=== PATIENT | male | born 1980 | race Two or more races ===

== ENCOUNTER 2018-05-06 00:47 | Observation (INO) | payer OTHER ==
[2018-05-06] MEDS ORDERED: ONDANSETRON 4 MG/2 ML VIAL IVP ONE (01:07)
[2018-05-06] MEDS ORDERED: fentaNYL 100 MCG/2 ML INJ IVP ONE (01:07)
[2018-05-06] MEDS ORDERED: NS 1,000 ML IV ONE ×2 (01:07→03:59)
--- NOTE | 2018-05-06 01:08 | EDPHY ---
H & P Stated Complaint: n/v, Abdo pain Time Seen by Provider: 05/06/18 00:53 HPI/ROS: Chief Complaint: Abdominal pain, nausea, vomiting HPI: 38-year-old male began having abdominal pain in his central abdomen about 4 hr ago. About an hour later he developed nausea and vomiting. No diarrhea or constipation. Has had similar symptoms several years ago was diagnosed with enteritis. No fevers or chills. No blood or coffee-grounds in his vomit. No dark tarry stools. Pain is about a 3/10. It moves around but is sting on the right-hand side. No urinary urgency or frequency. There are no aggravating or alleviating factors. ROS: 10 systems were reviewed and were negative except those elements noted in the HPI. PMH: Denies Social History: No smoking, no alcohol, no recreational drug use Family History: non-contributory Physical Exam: Gen: Awake, Alert, No Distress HEENT: Nose: no rhinorrhea Eyes: PERRLA, EOMI Mouth: Moist mucosa Neck: Supple, no JVD Chest: nontender, lungs clear to auscultation Heart: S1, S2 normal, no murmur Abd: Soft, mild right upper and right lower quadrant tenderness, no guarding Back: no CVA tenderness, no midline tenderness Ext: no edema, non-tender Skin: no rash Neuro: CN II-XII intact, Sensation grossly intact, Strength 5/5 in bilateral upper and lower extremities - Personal History Current Tetanus/Diphtheria Vaccine: Yes Current Tetanus Diphtheria and Acellular Pertussis (TDAP): Yes - Medical/Surgical History Hx Asthma: No Hx Chronic Respiratory Disease: No Hx Diabetes: No Hx Cardiac Disease: No Hx Renal Disease: No Hx Cirrhosis: No Hx Alcoholism: No Hx HIV/AIDS: No Hx Splenectomy or Spleen Trauma: No Other PMH: denies - Social History Smoking Status: Never smoked Constitutional: Initial Vital Signs Temperature (C) 36.7 C 05/06/18 00:49 Heart Rate 95 05/06/18 00:49 Respiratory Rate 16 05/06/18 00:49 Blood Pressure 132/91 H 05/06/18 00:49 O2 Sat (%) 97 05/06/18 00:49 O2 Delivery Mode Room Air Allergies/Adverse Reactions: No Known Allergies Allergy (Unverified 05/06/18 00:49) Home Medications: Medication Instructions Recorded NK [No Known Home Meds] 05/06/18 Medical Decision Making - Diagnostics Imaging Results: CT scan consistent with acute appendicitis per Dr. Hernandez. Imaging: Discussed imaging studies w/ call center coordinator Radiologist ED Course/Re-evaluation: 38-year-old male with acute appendicitis. This is confirmed on CT scan. I have discussed with Dr. Barboza, general surgery. He will plan to take the patient to the operating room. I have ordered ceftriaxone and Flagyl. - Data Points Laboratory Results: Laboratory Results 05/06/18 01:12 05/06/18 01:12 05/06/18 05/06/18 01:12 01:12 WBC 11.05 10^3/uL H 10^3/uL (3.80-9.50) RBC 5.06 10^6/uL 10^6/uL (4.40-6.38) Hgb 16.1 g/dL g/dL (13.7-17.5) Hct 44.6 % % (40.0-51.0) MCV 88.1 fL fL (81.5-99.8) MCH 31.8 pg pg (27.9-34.1) MCHC 36.1 g/dL g/dL (32.4-36.7) RDW 12.4 % % (11.5-15.2) Plt Count 223 10^3/uL 10^3/uL (150-400) MPV 10.3 fL fL (8.7-11.7) Neut % (Auto) 85.1 % H % (39.3-74.2) Lymph % (Auto) 11.0 % L % (15.0-45.0) Kendall % (Auto) 3.0 % L % (4.5-13.0) Eos % (Auto) 0.2 % L % (0.6-7.6) Baso % (Auto) 0.3 % % (0.3-1.7) Nucleat RBC Rel Count 0.0 % % (0.0-0.2) Absolute Neuts (auto) 9.41 10^3/uL H 10^3/uL (1.70-6.50) Absolute Lymphs (auto) 1.22 10^3/uL 10^3/uL (1.00-3.00) Absolute Monos (auto) 0.33 10^3/uL 10^3/uL (0.30-0.80) Absolute Eos (auto) 0.02 10^3/uL L 10^3/uL (0.03-0.40) Absolute Basos (auto) 0.03 10^3/uL 10^3/uL (0.02-0.10) Absolute Nucleated RBC 0.00 10^3/uL 10^3/uL (0-0.01) Immature Gran % 0.4 % % (0.0-1.1) Immature Gran # 0.04 10^3/uL 10^3/uL (0.00-0.10) Sodium 143 mEq/L mEq/L (135-145) Potassium 3.8 mEq/L mEq/L (3.3-5.0) Chloride 105 mEq/L mEq/L (97-110) Carbon Dioxide 26 mEq/l mEq/l (22-31) Anion Gap 12 mEq/L mEq/L (6-14) BUN 17 mg/dL mg/dL (7-23) Creatinine 0.8 mg/dL mg/dL (0.7-1.3) Estimated GFR > 60 Glucose 125 mg/dL H mg/dL (70-100) Calcium 9.6 mg/dL mg/dL (8.5-10.4) Total Bilirubin 1.0 mg/dL mg/dL (0.1-1.4) AST 27 IU/L IU/L (17-59) ALT 32 IU/L IU/L (21-72) Alkaline Phosphatase 81 IU/L IU/L (38-126) Total Protein 8.2 g/dL g/dL (6.3-8.2) Albumin 4.7 g/dL g/dL (3.5-5.0) Lipase 95 IU/L IU/L (23-300) Medications Given: Discontinued Medications Fentanyl (Sublimaze) 50 mcg IVP EDNOW ONE Stop: 05/06/18 01:08 Last Admin: 05/06/18 01:43 Dose: 50 mcg Sodium Chloride (Ns) 1,000 mls @ 0 mls/hr IV ONCE ONE; Wide Open PRN Reason: Protocol Stop: 05/06/18 01:08 Last Admin: 05/06/18 01:11 Dose: 1,000 mls Famotidine/Sodium Chloride (Pepcid 20 Mg (Premix)) 50 mls @ 200 mls/hr IV EDNOW ONE Stop: 05/06/18 02:45 Last Admin: 05/06/18 02:35 Dose: 50 mls Ketorolac Tromethamine (Toradol) 15 mg IVP EDNOW ONE Stop: 05/06/18 01:45 Last Admin: 05/06/18 01:49 Dose: 15 mg Ondansetron HCl (Zofran) 4 mg IVP EDNOW ONE Stop: 05/06/18 01:08 Last Admin: 05/06/18 01:44 Dose: 4 mg Departure - Departure Disposition: [facility] Inpatient Acute Clinical Impression: Acute appendicitis Condition: Fair Referrals: NONE *PRIMARY CARE P,. [Primary Care Provider] - As per Instructions
[2018-05-06 01:23] LABS: PLATELET COUNT 223 10^3/uL (150-400)
[2018-05-06] MEDS ORDERED: KETOROLAC 15 MG/1 ML SDV IVP ONE (01:44)
[2018-05-06] MEDS ORDERED: FAMOTIDINE 20 MG/NACL/50 ML BAG IV ONE (02:28)
[2018-05-06] MEDS ORDERED: FAMOTIDINE 20 MG/NACL 50 ML IV ONE (02:31)
[2018-05-06] MEDS ORDERED: IOPAMIDOL (ISOVUE-300) 100 ML BTL ONE (03:25)
[2018-05-06] MEDS ORDERED: NALOXONE HCL 0.4 MG/ML INJ IVP PRN (05:44)
[2018-05-06] MEDS ORDERED: ALBUTEROL 3 ML DEYVIAL IH PRN (05:44)
[2018-05-06] MEDS ORDERED: fentaNYL 100 MCG/2 ML INJ IVP PRN (05:44)
[2018-05-06] MEDS ORDERED: HYDROmorphONE/DILAUDID 2 MG/ML INJ IVP PRN (05:44)
[2018-05-06] MEDS ORDERED: ONDANSETRON 4 MG/2 ML VIAL IVP PRN ×2 (05:44→07:09)
[2018-05-06] MEDS ORDERED: PROMETHAZINE HCL 25 MG/ML INJ IVP PRN (05:44)
[2018-05-06] MEDS ORDERED: oxyCODONE IR 5 MG TAB PO PRN (05:44)
--- NOTE | 2018-05-06 05:46 | PDANEPAE ---
ANE History of Present Illness Appy ANE Past Medical History - Cardiovascular History Hx Hypertension: No Hx Arrhythmias: No - Pulmonary History Hx COPD: No Hx Asthma/Reactive Airway Disease: No Hx Oxygen in Use at Home: No - Endocrine History Hx Diabetes: No ANE Review of Systems Review of Systems: - Exercise capacity Exercise capacity: >=4 METS ANE Patient History - Allergies Allergies/Adverse Reactions: No Known Allergies Allergy (Unverified 05/06/18 00:49) - Home Medications Home Medications: NK [No Known Home Meds] 05/06/18 [Last Taken Unknown] - Smoking Hx Smoking Status: Never smoked ANE Labs/Vital Signs - Labs Result Diagrams: 05/06/18 01:12 05/06/18 01:12 - Vital Signs Blood Pressure: 134/83 Heart Rate: 96 Respiratory Rate: 18 O2 Sat (%): 98 Height: 169 cm Weight: 70 kg ANE Physical Exam - Airway Neck exam: FROM Mallampati Score: Class 2 Mouth exam: normal dental/mouth exam - Pulmonary Pulmonary: clear to auscultation - Cardiovascular Cardiovascular: regular rate and rhythym - ASA Status ASA Status: I, E ANE Anesthesia Plan Anesthesia Plan: general endotracheal anesthesia
[2018-05-06] MEDS ORDERED: fentaNYL 100 MCG/2 ML INJ ONE ×2 (05:48→07:24)
[2018-05-06] MEDS ORDERED: PROPOFOL 200 MG/20 ML VIAL ONE (05:49)
[2018-05-06] MEDS ORDERED: ROCURONIUM 50 MG/5 ML VIAL ONE (05:50)
[2018-05-06] MEDS ORDERED: LIDOCAINE 2% 2 ML INJ ONE ×2 (05:51)
[2018-05-06] MEDS ORDERED: DEXAMETHASONE 4 MG/ML VIAL ONE (05:51)
[2018-05-06] MEDS ORDERED: ONDANSETRON 4 MG/2 ML VIAL ONE (05:51)
[2018-05-06] MEDS ORDERED: PHENYLEPHRINE HCL 100 MCG/ML SYR ONE (06:03)
[2018-05-06] MEDS ORDERED: HEPARIN 5,000 UNIT/0.5 ML INJ ONE (06:08)
[2018-05-06] MEDS ORDERED: ceFAZolin 1 GM/5 ML SYR ONE (06:08)
[2018-05-06] MEDS ORDERED: fentaNYL 250 MCG/5 ML INJ ONE (06:23)
--- NOTE | 2018-05-06 07:03 | POSTOPPROG ---
Post Op Note Date of Operation: 05/06/18 Surgeon: Bryan Barboza Anesthesia: GET(General Endotracheal) Pre-op Diagnosis: acute appendicitis, right indirect inguinal hernia Post-op Diagnosis: acute appendicitis, right > left indirect inguinal hernias Indication: acute appendicitis Procedure: laparoscopic appendectomy Findings: acute appendicitis, right > left indirect inguinal hernias Inf/Abcess present in the surg proc area at time of surgery?: No EBL: Minimal Total fluids administered: 2550 since ER admit Complications: none Specimen(s): appendix
[2018-05-06] MEDS ORDERED: SUGAMMADEX SODIUM 200 MG/2 ML VIAL IVP ONE (07:05)
[2018-05-06] MEDS ORDERED: HYDROmorphONE/DILAUDID 1 MG/ML INJ IVP PRN (07:09)
[2018-05-06] MEDS ORDERED: ACETAMINOPHEN 325 MG TAB PO SCH (07:15)
[2018-05-06] MEDS ORDERED: LR 1,000 ML IV SCH (07:30)
--- NOTE | 2018-05-06 07:31 | GHP ---
DATE OF ADMISSION: 05/06/2018 ADMITTING DIAGNOSIS: Massively distended appendix/mucocele, large reducible right inguinal hernia HISTORY: The patient is a 38-year-old Croatian-speaking male. He presented to the emergency department with right abdominal pain. CT shows an appendix which is dilated to 27 mm with possible right ureteral obstruction. I was asked to come see the patient. Apparently he had a similar episode both 4 and 3 years ago in [place]. A CT was not performed at that time, just plain x- rays. He was told he had an enteritis which resolved without issue. On Monday night he had pizza for dinner and woke up Monday morning feeling tired and having mild abdominal pain. He was able to eat breakfast but ate only a small amount for dinner as he was not very hungry. He vomited at 11 p.m. and he decided to come to the ER. The pain had become progressively worse over the course of the day. He moved his bowels in the morning and was slightly better at that time. He had nasal congestion 2 weeks ago. He described allergies. He has not had any diarrhea. He did travel to [place] in March. He has not had any antibiotics in the last 6 months. No abdominal surgery. There is no history of inflammatory bowel disease. SOCIAL HISTORY: He does not smoke. He does not drink. ALLERGIES: He has no known drug allergies. MEDICATIONS: His only medication is ibuprofen. PAST MEDICAL/SURGICAL HISTORY: He had no prior surgery. There is no history of rheumatic fever, tuberculosis, hepatitis, transfusions. REVIEW OF SYSTEMS: He has myopia, dry eyes, and does wear glasses. He has seasonal allergies. He has a left upper molar, which is in need of dental care. 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 He has known small right inguinal hernia. There are no limits on his activities. No history of steroid use. PHYSICAL EXAMINATION: VITAL SIGNS: His temperature is 36.7. His pain is now down from a 9 to a 2-3. His blood pressure is 132/91, at a rate of 95, respirations are 16, room air sats 97%. GENERAL: He is awake, alert, and oriented. He is pleasant and conversant. The interview is carried out using the video asp web developer. He states he feels much better than he did when he arrived at the hospital. NEUROLOGIC: He is awake, alert, and oriented to person, place, and time. No focal lateralizing neurologic findings. NECK: Supple. There are no carotid bruits. LYMPHATIC: There is no cervical, supraclavicular, axillary, or inguinal lymphadenopathy. BACK: Unremarkable. LUNGS: Clear to auscultation. CARDIAC: Shows S1, S2 to be normal, normal split of S2 without murmurs, rubs, or gallops. ABDOMEN: Shows hypoactive bowel sounds. Psoas and obturator signs are negative. He is tender with cough in the right mid abdomen at 3/10. To palpation left upper quadrant is 1, left midabdomen is 1, left lower quadrant is 2, epigastrium is 1, periumbilical area is 2, suprapubic area is 3, right upper quadrant 2, right mid abdomen is 4, right lower quadrant is 5. Right inguinal hernia is easily reducible EXTREMITIES: Unremarkable except for two lipomas on the right forearm. LABS: His white count 11.5 with 85% neutrophils. Hematocrit is 44, platelet count is 233. His glucose was 125. Lipase is 95. Potassium is 3.8. Sodium is 143. The UA was ordered but not done. IMAGING: The CT scan does show the 27 mm in diameter appendix/mucocele. It looks as if there is edema in the retroperitoneum without distinct stranding. There is a dilated right ureteral pelvis. I do not see anything I can clearly call a neoplastic change. I do not appreciate any lymphadenopathy of significance. This is an unusual presentation. I will plan to start laparoscopically but may convert to an open procedure if necessary. /[id number]/MODL MTDD
--- NOTE | 2018-05-06 08:01 | GOP ---
DATE OF OPERATION: 05/06/2018 SURGEON: Bryan Barboza MD ANESTHESIA: General endotracheal. PREOPERATIVE DIAGNOSIS: Acute appendicitis with it is an incidental finding of a right indirect inguinal hernia. POSTOPERATIVE DIAGNOSIS: Acute appendicitis with right greater than left indirect inguinal hernias. PROCEDURE PERFORMED: Laparoscopic appendectomy. FINDINGS: Acute appendicitis with right greater than left indirect inguinal hernias. SPECIMENS: Appendix. ESTIMATED BLOOD LOSS: Minimal. INDICATIONS: Acute appendicitis. DESCRIPTION OF PROCEDURE: The patient was placed on the operating table in supine position. After induction of adequate general endotracheal anesthesia, the patient was carefully clipped, prepped, and draped. A curvilinear incision was planned at the umbilicus. A vertically oriented suprapubic incision was planned in case an open surgery is necessary, and an oblique left lower quadrant incision was made. He has a very distended appendix (27 mm) with possible ureteral obstruction. There was no evidence of neoplasia,but the possibility of low-grade mucinous adenocarcinoma was considered. With this in mind, the possibility of an open procedure has been discussed with the patient and is the reason for the orientation of the incisions. A surgical time-out was carried out and agreed to by all members of the operative team. The umbilical incision was carefully sharply made and deepened with Bovie electrocautery as are the left lower quadrant suprapubic incisions. Dissection was carried out down to the anterior rectus sheath which was elevated between Allis clamps. The fascia was divided in the midline. A pursestring of #0 PDS was placed. An 11-12 mm Murphy disposable trocar was introduced. Intraabdominal insufflation was carried out to 15 mmHg. A 5 mm trocar was placed through left lower quadrant skin incision as well as at the suprapubic site. Intraperitoneal evaluation shows no peritoneal implants. It shows a small amount of clear fluid deep in the pelvis. The appendix is tensely distended. The peritoneum was carefully entered lateral to the appendix. This incision was carried up along the right pericolic gutter. This incises the white line of Toldt. The cecum and appendix were rotated medially. Further dissection was carried out to expose the mesoappendix. This was carefully divided with the Harmonic scalpel. Adhesions to the terminal ileum were carefully taken down. The cecum was cleared for a distance of approximately 1 cm. A 45 mm Endo JUANA stapler was placed across the cecal base and fired. The specimen was from the cecum and placed in an Endo Catch bag. Note, the specimen was delivered via the umbilical port site. Pneumoperitoneum was reestablished. Hemostasis was found to be excellent. Photographic documentation of both right and left inguinal hernias was carried out. The small bowel was run for a distance of 3 feet. There was no evidence of mesenteric adenitis or Meckel diverticulum. Pneumoperitoneum was released. An inverted simple suture of PDS was placed at the midportion of the infraumbilical midline fascial incision. The pursestring was now tied. The subcutaneous tissue was well irrigated. The skin was closed at all incision sites with inverted simple sutures of #4-0 Vicryl. Dermabond was used for closure. The patient tolerated the procedure well and was transferred to recovery in stable and satisfactory condition. Final diagnosis will depend upon pathologic analysis. INFECTION: None. TOTAL FLUIDS ADMINISTERED: 2550 cc since ER. COMPLICATIONS: None. /[id number]/MODL MTDD
[2018-05-06] MEDS: ACETAMINOPHEN 500 MG TAB PO SCH ×2 (10:54→18:41)
[2018-05-06] MEDS: KETOROLAC 15 MG/1 ML SDV IVP SCH ×3 (11:52→23:03)
--- NOTE | 2018-05-06 16:09 | ASMTCMCOM ---
CM Note CM Note Notes: 38yr old male admitted for Acute appendicitis. He has a Hx of R inguinal hernia, 2 lipomas R forearm, Myopia. Patient had an appendectomy. Patient lives alone. CM not anticipating that he will have discharge needs. Date Signed: 05/06/2018 04:08 PM Electronically Signed By:Bethany Cole LCSW
[2018-05-07] MEDS: ACETAMINOPHEN 500 MG TAB PO SCH ×2 (02:42→11:45)
[2018-05-07] MEDS: KETOROLAC 15 MG/1 ML SDV IVP SCH ×2 (07:54→11:48)
[2018-05-07 08:30] VITALS: BP 119/74
--- NOTE | 2018-05-07 09:57 | SOAPPROG ---
SOAP Progress Note Assessment/Plan: Assessment/Plan: POD#1 s/p lap appy. Eating. Pain controlled. No fever. Dc to home today. Rx in chart per Dr. Barboza. alert, nad ctab rrr abd sot, inc cdi 05/07/18 09:56 Objective: Vital Signs Temp Pulse Resp BP Pulse Ox 36.9 C 56 L 16 119/74 94 05/07/18 08:26 05/07/18 08:26 05/07/18 08:26 05/07/18 08:26 05/07/18 08:26 05/06/18 05/07/18 05/08/18 05:59 05:59 05:59 Intake Total 1250 1000 Output Total 1600 Balance 1250 -600 ICD10 Worksheet Patient Problems: Problems Problem Status Onset Acute appendicitis Acute
--- NOTE | 2018-05-07 12:01 | ASMTLACE ---
LACE Length of stay for Answers: 2 days current admission Acuity / Level of Answers: No Care: Did the patient have an inpatient admission? Comorbidities - select Answers: Other Notes: R Hernia, Acute all that apply appendicitis # of Emergency department Answers: 1-2 visits in the last 6 months Score: 4 Date Signed: 05/07/2018 12:01 PM Electronically Signed By:NICOLE Buckley
--- NOTE | 2018-05-07 12:02 | ASMTCMCOM ---
CM Note CM Note Notes: Pt medically stable for d/c, no CM d/c needs identified. Date Signed: 05/07/2018 12:01 PM Electronically Signed By:NICOLE Buckley
--- NOTE | 2018-05-09 15:56 | POSTANESTH ---
Post Anesthetic Evaluation Cardiovascular Status: Normal, Stable Respiratory Status: Normal, Stable Level of Consciousness/Mental Status: Can Participate in Eval, Alert and Oriented Pain Control: Adequate, Prn Tx Ordered Nausea/Vomiting Control: Adequate, Prn Tx Ordered
== END 2018-05-07 12:00 | disposition home or self-care (01) ==
LOC: F3N 08:06
PROVIDERS: ADMIT Surgery; ATTEND Surgery
PROC: 0DTJ4ZZ Resection of Appendix, Percutaneous Endoscopic Approach (ICD-10-PCS; principal; 2018-05-06 05:30)
DX: K35.80 Unspecified acute appendicitis (principal); K40.20 Bilateral inguinal hernia, without obstruction or gangrene, not specified as recurrent; E86.9 Volume depletion, unspecified; R93.41 Abnormal radiologic findings on diagnostic imaging of renal pelvis, ureter, or bladder
CPT/HCPCS: 44970; 74177; 96361; 96374; 96375; 96376; 99285; G0378; J0696; J1100; J1644; J1885; J2370; J2405; J2704; J3010; Q9967